=== PATIENT | female | born 1950 | race Caucasian/White ===

== ENCOUNTER 2022-11-13 09:31 | Outpatient (CLI) | payer MEDICARE, OTHER, SELFPAY | END 2022-11-13 09:32 | disposition home or self-care (01) | PROVIDERS: PCP Family Medicine; Visit Provider Family Medicine | DX: Z00.00 Encounter for general adult medical examination without abnormal findings (principal); I10 Essential (primary) hypertension; E78.5 Hyperlipidemia, unspecified; E13.9 Other specified diabetes mellitus without complications; Z13.29 Encounter for screening for other suspected endocrine disorder; N63.0 Unspecified lump in unspecified breast; Z79.899 Other long term (current) drug therapy; F32.9 Major depressive disorder, single episode, unspecified | CPT/HCPCS: 80053; 80061; 84443; 84681 ==

== ENCOUNTER 2022-11-19 10:24 | Outpatient (CLI) | payer MEDICARE, OTHER, SELFPAY ==
--- NOTE | 2022-11-19 10:45 | CRLHL7_ITS ---
For Patients: As a result of the Cures Act, medical imaging exams and procedure reports are released immediately into your electronic medical record. You may view this report before your referring provider. If you have questions, please contact your health care provider. PLEASE SEE DIGITAL DIAGNOSTIC BILATERAL MAMMOGRAM PERFORMED SAME DAY [email or web address]:[email or web address] lara/Dictated by: Eliazar Castillo MD @ 11/19/2022 12:18:00 PM (Electronically Signed)
--- NOTE | 2022-11-19 10:45 | CRLHL7_ITS ---
For Patients: As a result of the Cures Act, medical imaging exams and procedure reports are released immediately into your electronic medical record. You may view this report before your referring provider. If you have questions, please contact your health care provider. DIGITAL DIAGNOSTIC BILATERAL MAMMOGRAM USING TOMOSYNTHESIS AND COMPUTER-AIDED DETECTION RIGHT BREAST ULTRASOUND CLINICAL HISTORY: RIGHT breast lump. COMPARISON: None. TECHNIQUE: Digital BILATERAL mammogram in four projections. Tomosynthesis and CAD utilized. Real-time ultrasound imaging of RIGHT breast with imaging documentation. Scanning was performed by both the technologist and the radiologist. BREAST COMPOSITION: There are areas of scattered fibroglandular density. FINDINGS: 3D CC/MLO BILATERAL mammogram images submitted. Asymmetric density within the medial RIGHT breast, slightly inferior. No architectural distortion. Normal LEFT breast mammogram images. Incidental benign vascular calcifications are present. No adenopathy. Targeted RIGHT breast ultrasound performed. At 4 o`clock 6 cm from the nipple, there is a normal island of fibroglandular tissue corresponding to the area of palpable concern and density and mammogram. No suspicious findings. IMPRESSION: No evidence of malignancy. RECOMMENDATIONS: Annual BILATERAL screening mammography. BI-RADS Category 2: Benign A lay language report of this examination will be provided to the patient. Dictated by Eliazar Castillo MD @ 11/19/2022 12:18:54 PM /Dictated by: Eliazar Castillo MD @ 11/19/2022 12:18:00 PM (Electronically Signed)
== END 2022-11-19 10:25 | disposition home or self-care (01) ==
LOC: MAMMO 10:25
PROVIDERS: PCP Family Medicine; Visit Provider Family Medicine
DX: N63.15 Unspecified lump in the right breast, overlapping quadrants (principal)
CPT/HCPCS: 76642; 77066; G0279

== ENCOUNTER 2024-02-02 10:12 | Outpatient (CLI) | payer MEDICARE, OTHER, SELFPAY ==
--- NOTE | 2024-02-02 10:15 | CRLHL7_ITS ---
For Patients: As a result of the Century Cures Act, medical imaging exams and procedure reports are released immediately into your electronic medical record. You may view this report before your referring provider. If you have questions, please contact your health care provider. INDICATION : Thyroid nodule. TECHNIQUE : Ultrasound-guided fine needle aspiration of thyroid nodule. Comparison : 12/23/2023 FINDINGS : PROCEDURE: After the informed consent and time-out, multiple fine needle aspirations were obtained from the thyroid nodule. Fine needle performed. 25 gauge needles were used. Lidocaine was used for local anesthesia. The preliminary cytology was adequate for interpretation. Real-time imaging was used for guidance and needle placement. Post imaging ultrasound demonstrates no immediate complication. IMPRESSION : Successful fine needle aspiration of partially calcified nodule thyroid nodule. A 2nd heavily calcified nodule is also present. This nodule could not be accessed for FNA. Dictated by Eliazar Castillo MD @ 02/03/2024 1:00:31 PM (Electronically Signed)
== END 2024-02-02 10:13 | disposition home or self-care (01) ==
PROVIDERS: PCP Family Medicine; Visit Provider Surgery
DX: E04.1 Nontoxic single thyroid nodule (principal)
CPT/HCPCS: 10005; 88173

== ENCOUNTER 2024-02-04 14:20 | Outpatient (CLI) | payer MEDICARE, OTHER, SELFPAY ==
--- NOTE | 2024-02-04 14:40 | CRLHL7_ITS ---
For Patients: As a result of the Century Cures Act, medical imaging exams and procedure reports are released immediately into your electronic medical record. You may view this report before your referring provider. If you have questions, please contact your health care provider. BILATERAL SCREENING MAMMOGRAM WITH COMPUTER-AIDED DETECTION AND TOMOSYNTHESIS TECHNIQUE: CC and MLO views were obtained. These mammographic images have been obtained using full-field digital technique. These mammographic images were interpreted with the benefit of computer-aided detection. Breast Tomosynthesis was used in this interpretation. COMPARISON FILM: 11/19/22. FINDINGS: The breasts are almost entirely fatty IMPRESSION: There is no radiographic evidence for malignancy. ASSESSMENT: BI-RADS Category 1: Negative RECOMMENDATION: Routine screening mammogram in 1 year. A lay language report of this examination will be provided to the patient. Eliazar Castillo M.D. Diagnostic Radiologist [email or web address] Transcribed: 2:48 [email or web address]/Dictated by: Eliazar Castillo MD @ 02/05/2024 1:08:00 PM (Electronically Signed)
== END 2024-02-04 14:21 | disposition home or self-care (01) ==
PROVIDERS: PCP Family Medicine; Visit Provider Family Medicine
DX: Z12.31 Encounter for screening mammogram for malignant neoplasm of breast (principal)
CPT/HCPCS: 77063; 77067

== ENCOUNTER 2024-11-17 14:53 | Outpatient (CLI) | payer MEDICARE, OTHER, SELFPAY | END 2024-11-17 14:54 | disposition home or self-care (01) | PROVIDERS: PCP Family Medicine; Visit Provider Family Medicine | DX: E78.2 Mixed hyperlipidemia (principal); E03.9 Hypothyroidism, unspecified; E10.9 Type 1 diabetes mellitus without complications; Z79.4 Long term (current) use of insulin | CPT/HCPCS: 80048; 80061; 84439; 84443 ==

== ENCOUNTER 2025-02-07 13:31 | Outpatient (CLI) | payer MEDICARE, OTHER, SELFPAY | END 2025-02-07 13:32 | disposition home or self-care (01) | LOC: NFLDREF 02-08 22:54 | PROVIDERS: PCP Family Medicine; Referring Provider Family Medicine; Visit Provider Family Medicine | DX: E89.0 Postprocedural hypothyroidism (principal) | CPT/HCPCS: 84439; 84443 ==

== ENCOUNTER 2025-05-31 14:34 | Outpatient (CLI) | payer MEDICARE, OTHER, SELFPAY ==
--- NOTE | 2025-05-31 14:40 | CRLHL7_ITS ---
For Patients: As a result of the Century Cures Act, medical imaging exams and procedure reports are released immediately into your electronic medical record. You may view this report before your referring provider. If you have questions, please contact your health care provider. INDICATION: BILATERAL SCREENING MAMMOGRAM, ASYMPTOMATIC 75 Y/O FEMALE COMPARISON: 02/04/2024, 11/19/2022 TECHNIQUE: Digital mammogram in CC and MLO projections including computer-aided detection (CAD) and tomosynthesis. BREAST COMPOSITION: The breasts are almost entirely fatty. FINDINGS: No suspicious findings. ASSESSMENT: BI-RADS 1 Negative RECOMMENDATION: Annual screening mammogram. A lay language report of this examination will be provided to the patient. Dictated by: Eliazar Castillo MD @ 06/01/2025 09:00:56 (Electronically Signed)
== END 2025-05-31 14:35 | disposition home or self-care (01) ==
LOC: MAMMO 14:34
PROVIDERS: PCP Family Medicine; Visit Provider Family Medicine
DX: Z12.31 Encounter for screening mammogram for malignant neoplasm of breast (principal)
CPT/HCPCS: 77063; 77067